=== PATIENT | female | born 1995 | race Caucasian/White ===

== ENCOUNTER → 2016-07-07 | Outpatient (CLI) | payer OTHER ==
[~2016-07-07] MED LIST: GADOBUTROL 7.5 MMOL/7.5 ML PFS ONE
== END | disposition home or self-care (01) ==
LOC: RAD 09:17
PROVIDERS: ATTEND Student in an Organized Health Care Education/Training Program
DX: Q51.818 Other congenital malformations of uterus (principal); N83.202 Unspecified ovarian cyst, left side
CPT/HCPCS: 72197; 76770; A9585